=== PATIENT | male | born 1990 | race Hispanic/Latino ===

== ENCOUNTER 2017-03-12 23:42 | Inpatient (IN) | payer MEDICAID ==
--- NOTE | 2017-03-12 23:49 | C.PDOC ---
History Of Present Illness Patient is a transfer from [facility] for psychiatric admission. Patient has been medically cleared and has no physical complaints at the time. Time Seen by Provider: 03/12/17 23:49 History Per: Patient History/Exam Limitations: no limitations Onset/Duration Of Symptoms: Days Current Symptoms Are (Timing): Still Present Suicide/Self Injury Attempted (Context): Other (Not known) Modifying Factor(s): None Severity: None Pain Scale Rating Of: 0 Associated Symptoms: Depression, Suicidal Thoughts Recent travel outside of the [facility]: No Past Medical History Reviewed: Historical Data, Nursing Documentation, Vital Signs Vital Signs: Last Vital Signs Temp 98.4 F 03/12/17 23:50 Pulse 63 03/12/17 23:50 Resp 20 03/12/17 23:50 BP 124/76 03/12/17 23:50 Pulse Ox 100 03/12/17 23:50 - Medical History PMH: No Chronic Diseases Surgical History: No Surg Hx Family History: States: No Known Family Hx Review Of Systems Constitutional: Negative for: Fever, Chills Gastrointestinal: Negative for: Nausea, Vomiting, Diarrhea Psych: Positive for: Depression, Suicidal ideation Physical Exam - Physical Exam Appears: Non-toxic Skin: Warm, Dry Oral Mucosa: Moist Chest: Symmetrical, No Tenderness Cardiovascular: Rhythm Regular, No Murmur Respiratory: No Rales, No Rhonchi, No Wheezing Gastrointestinal/Abdominal: Soft, No Tenderness Neurological/Psych: Oriented x3 Disposition Discussed With : Mona Ordoñez Comment: accepted the pt on his service and took over the care at 12AM Doctor Will See Patient In The: Hospital Counseled Patient/Family Regarding: Studies Performed, Diagnosis - Disposition Disposition: HOSPITALIZED Disposition Time: 23:49 Condition: FAIR - POA Present On Arrival: None - Clinical Impression Clinical Impression: Depression - Scribe Statement The provider has reviewed the documentation as recorded by the Scribe [place] All medical record entries made by the Scribe were at my direction and personally dictated by me. I have reviewed the chart and agree that the record accurately reflects my personal performance of the history, physical exam, medical decision making, and the department course for this patient. I have also personally directed, reviewed, and agree with the discharge instructions and disposition. Decision To Admit - Pt Status Changed To: Hospital Disposition Of: Inpatient - Admit Certification Admit to Inpatient:: After my assessment, the patient will require hospitalization for at least two midnights. This is because of the severity of symptoms shown, intensity of services needed, and/or the medical risk in this patient being treated as an outpatient. - InPatient: Physician Admission Certification: I certify that this patient requires 2 or more midnights of care for the following reason:: After my assessment, the patient will require hospitalization for at least two midnights. This is because of the severity of symptoms shown, intensity of services needed, and/or the medical risk in this patient being treated as an outpatient. - . Bed Request Type: Psychiatry Admitting Physician: Mona Ordoñez Patient Diagnosis: Depression
[2017-03-13] MEDS ORDERED: Pneumococcal 23-Valent Vaccine IM ONE (01:46)
--- NOTE | 2017-03-13 10:47 | PCM.PSYCH ---
Initial Psychiatric Evaluation - Initial Psychiatric Evaluation Type of Admission: Voluntary Legal Status: Capacity Chief Complaint (in patient's own words): 'I was feeling depressed and suicidal' History of Present Illness and Precipitating Events: This is a 26 years old male, currently lives with mother, currently unemployed with a history of bipolar disorder and opiate use disorder came to the ER with depressed mood and suicidal ideation with plan to slit his neck. Patient reports a long history of abusing heroin and depression. Patient reports that he was hospitalized in a [facility] in November, and after discharge he started following up with Dr. Heart, in their outpatient clinic. He also reports that he is clean for 5 months. Patient states that he is coming increasingly irritable and depressed since past 2 weeks. He reports depressed mood, feelings of hopelessness and helplessness and poor sleep. He reports stressors of 'not having a job' and a 'recent breakup.' Yesterday he became increasing suicidal and he tried to slit his neck with a knife, but then changed his mind and came to the hospital. He has superficial cuts on both side of the neck. He also reports at times racing of thoughts, flight of ideas, poor concentration. As per him his mind never stops. He denies any auditory or visual hallucinations or any psychosis. He denies any drinking or any substance abuse. PMH H/O Seizures, H/O MVP, H/O Benign Brain Tumor Current Medications: Active Medications Generic Name Dose Route Start Last Admin Trade Name Freq PRN Reason Stop Dose Admin Diphenhydramine HCl 50 mg 03/13/17 01:28 03/13/17 01:44 Benadryl PO 50 mg HS PRN Administration Insomnia Nicotine 1 patch 03/13/17 10:00 03/13/17 09:53 Nicoderm Cq TD 1 patch DAILY IRVIN Administration Past Psychiatric History - Past Psychiatric History Previous Treatment History: Inpatient Pertinent Medical Hx (Current Medical&Sleep Prob, Allergies): Allergies Allergy/AdvReac Type Severity Reaction Status Date / Time Penicillins Allergy Verified 03/12/17 23:58 Buprenorphine Hydrochloride [Subutex] 8 mg SL BID 03/12/17 Gabapentin 300 mg PO TID 03/12/17 Lamotrigine [Lamictal] 150 mg PO BID 03/12/17 busPIRone [Buspar] 10 mg PO TID 03/12/17 Review of Systems - Review of Systems All systems: reviewed and no additional remarkable complaints except - Psychiatric Psychiatric: Anxiety, Irritability, Mood Swings, Suicidal Ideation Mental Status Examination - Personal Presentation Personal Presentation: Looks stated age - Affect Affect: Constricted, Depressed - Motor Activity Motor Activity: Calm - Reliability in Providing Information Reliability in Providing Information: Good - Speech Speech: Organized - Mood Mood: Depressed, Anxious - Formal Thought Process Formal Thought Process: Flight of ideas - Obsessions/Compulsions Obsessions: No Compulsions: No - Cognitive Functions Orientation: Person, Place, Situation, Time Sensorium: Alert Attention/Concentration: Attentive Abstract Thinking: [place] Estimate of Intelligence: Below average Judgement: Imparied, as evidence by: Poor judgement, Imparied, as evidence by: Lack of insight into illness - Risk Risk: Suicidal, Diminished functioning - Strength & Assets Inventory Strength & Assets Inventory: Cooperative DSM 5 DX - DSM 5 DSM 5 Diagnosis: Bipolar disorder most episode mixed severe without psychotic features Opiate use disorder on maintenance therapy - Recommended/Plan of Treatment Treatment Recommendations and Plan of Treatment: Bipolar disorder most episode mixed severe without psychotic features CBT Psychoeducation Supportive therapy, group therapy, individual therapy Zoloft 25 mg daily Depakote 250 by mouth twice a day Trazodone 50 mg by mouth daily at bedtime Opiate use disorder on maintenance therapy CBT Psychoeducation Supportive therapy, individual therapy Use [place] for abstinence Subutex 8 mg SL twice a day H/O Seizures Neurontin 900 mg by mouth 3 times a day H/O MVP Monitor signs and symptoms H/O Benign Brain Tumor Monitor signs and symptoms - Smoking Cessation Smoking Cessation Initiated: No
[2017-03-13] MEDS: Buprenorphine Hydrochloride 8 mg SL SCH ×2 (10:59→17:19)
[2017-03-13] MEDS: Divalproex 250 mg DR Tab PO SCH (17:19)
[2017-03-14 07:20] VITALS: RESP 18
[2017-03-14] MEDS: Divalproex 250 mg DR Tab PO SCH ×2 (09:10→17:43)
[2017-03-14] MEDS: Buprenorphine Hydrochloride 8 mg SL SCH ×2 (09:11→18:11)
--- NOTE | 2017-03-14 10:04 | PCM.PYCHPN ---
Psychiatric Progress Note - Psychiatric Progress Note Patient Chief Complaint: 'I was feeling depressed and suicidal' Mental Status Examination - Cognitive Function Orientation: Person, Place, Situation, Time - Mood Mood: Depressed, Anxious - Affect Affect: Constricted, Depressed - Formal Thought Process Formal Thought Process: Flight of ideas Goal/Treatment Plan - Goal/Treatment Plan Progress Toward Problem(s) and Goals/Treatment Plan: Bipolar disorder most episode mixed severe without psychotic features CBT Psychoeducation Supportive therapy, group therapy, individual therapy Zoloft 25 mg daily Depakote 250 by mouth twice a day Trazodone 50 mg by mouth daily at bedtime Opiate use disorder on maintenance therapy CBT Psychoeducation Supportive therapy, individual therapy Use [place] for abstinence Subutex 8 mg SL twice a day H/O Seizures Neurontin 900 mg by mouth 3 times a day H/O MVP Monitor signs and symptoms H/O Benign Brain Tumor Monitor signs and symptoms
[2017-03-15 07:50] VITALS: BP 96/60; PULSE 65; TEMP 96; O2SAT 99
[2017-03-15] MEDS: Buprenorphine Hydrochloride 8 mg SL SCH (09:45)
[2017-03-15] MEDS: Divalproex 250 mg DR Tab PO SCH (09:46)
--- NOTE | 2017-03-15 12:00 | PCM.PYCHDC ---
Mental Status Examination - Mental Status Examination Orientation: Person, Place, Situation, Time Memory: Intact Mood: Other (Yelling and cursing at the staff) Affect: Broad Speech: Loud, Pressured Attention: WNL Concentration: WNL Association: WNL Fund of Knowledge: WNL Formal Thought Process: No Impairment Description of patient's judgement and insight: partially impaired Psychotic Thoughts and Behaviors: denies any AVH Suicidal Ideation: No Current Homicidal Ideation?: No Discharge Summary - Discharge Note Reason for Hospitalization: This is a 26 years old male, currently lives with mother, currently unemployed with a history of bipolar disorder and opiate use disorder came to the ER with depressed mood and suicidal ideation with plan to slit his neck. Patient reports a long history of abusing heroin and depression. Patient reports that he was hospitalized in a [facility] in November, and after discharge he started following up with Dr. Heart, in their outpatient clinic. He also reports that he is clean for 5 months. Patient states that he is coming increasingly irritable and depressed since past 2 weeks. He reports depressed mood, feelings of hopelessness and helplessness and poor sleep. He reports stressors of 'not having a job' and a 'recent breakup.' Yesterday he became increasing suicidal and he tried to slit his neck with a knife, but then changed his mind and came to the hospital. He has superficial cuts on both side of the neck. He also reports at times racing of thoughts, flight of ideas, poor concentration. As per him his mind never stops. He denies any auditory or visual hallucinations or any psychosis. He denies any drinking or any substance abuse. Consultations:: List each consultation separately and include: 1. Reason for request. 2. Findings. 3. Follow-up Summary of Hospital Course include:: 1. Description of specific treatment plan utilized for patients during their course of treatmen. 2. Summarize the time- course for resolution of acute symptoms and/or regressed behaviors. 3. Describe issues identified and worked on during hospitalization. 4. Describe medication utilized. 5. Describe medical problems identified and treated. 6. Reassessment of suicide risk Summary of Hospital Course: During the course of his stay, patient (pt) started progressively improving, and he no longer remained irritable, & suicidal. However patient started going to the female patient's rooms and started stocking them. He became med seeking and start asking for Ativan and Klonopin. He started becoming intrusive and started suggesting patients to demand Ativan and other medications from nurses. Today in the morning when patient was confronted for his behavior, he became angry and started yelling and cursing at the staff. He demanded to be discharge immediately AMA. But then later, when he was asked to sign AMA paper, he said he is suicidal, and became furious and started cursing and started passing the racial slurs towards the staff. He started threatening the staff. As a result, security was called and patient was escorted out. - Final Diagnosis (DSM 5) Condition upon Discharge: FAIR DSM 5: Bipolar disorder most episode mixed severe without psychotic features Opiate use disorder on maintenance therapy Disposition: AGAINST MEDICAL ADVICE Follow-up Treatment Plan: Education: Pt was educated and counseled about the risks of drinking and abusing drugs. Pt was educated and counseled to go to the ER or call 911 if pt develop suicidal ideation or homicidal ideation, worsening of symptoms or severe side effects of the meds. - Smoking Cessation Smoking Cessation Medication prescribed: No - Antipsychotic Medications Pt discharged on 2 or more routine antipsychotic medications: No
== END 2017-03-15 12:15 | disposition left against medical advice (07) | DRG 430 ==
LOC: EDBD 23:42 → C.ER 23:42 → C.5E 03-13 00:02
PROVIDERS: ADMIT Psychiatry & Neurology Psychiatry; ATTEND Psychiatry & Neurology Psychiatry
DX: F31.63 Bipolar disorder, current episode mixed, severe, without psychotic features (principal); R56.9 Unspecified convulsions; F11.90 Opioid use, unspecified, uncomplicated; Z88.0 Allergy status to penicillin; Z86.011 Personal history of benign neoplasm of the brain